=== PATIENT | male | born 1995 | race Caucasian/White ===

== ENCOUNTER → 2021-12-06 | Outpatient (CLI) | payer OTHER, SELFPAY ==
[2021-12-06 12:13] LABS: Absolute Lymphocyte Count 1.39 X10^3/uL (0.83-4.51); Absolute Neutrophil Count 2.2 X10^3/uL (2.0-7.7); Basophil# 0.03 X10^3/uL; Basophil% 0.8 % (0-1); Eosinophil# 0.07 X10^3/uL; Eosinophils% 1.8 % (0-5); Hematocrit 44.6 % (40-54); Hemoglobin 16.3 g/dL (13.0-16.5); Lymphocyte # 1.39 X10^3/ul (0.83-4.51); Lymphocyte % 35.2 % (19-41); Mean Corp Hgb Conc 36.5 g/dL (32-36); Mean Corpuscular Hgb 31.2 pg (27.0-32.0); Mean Corpuscular Volume 85.4 fL (80-94); Mean Platelet Vol. 10.6 fl (6.2-12.0); Monocyte# 0.31 X10^3/uL; Monocyte% 7.8 % (0-10); NRBC Flagged by Analyzer 0 % (0-5); Neutrophil # 2.15 X10^3/uL (2.7-7.7); Neutrophil % 54.4 % (47-70); Platelet Count 230 K/mm3 (150-450); RBC Distribution Width CV 11.7 % (11.6-14.6); Red Blood Count 5.22 M/mm3 (4.6-6.2)
[2021-12-06 12:53] LABS: ALB/GLOB Ratio 1.4 RATIO (0.9-2.4); AST(SGOT) 23 U/L (15-37); Alanine Aminotransfer ALT/SGPT 59 U/L (16-61); Albumin, Serum 4.4 g/dL (3.2-5.0); Alkaline Phosphatase 62 U/L (45-117); Anion Gap 7 (5-15); BUN 11 mg/dL (7-18); BUN/Creat Ratio 11.2 RATIO (10-20); Chloride 102 mmol/L (98-107); Cholesterol 130 mg/dL (200); Creatinine, Serum 0.98 mg/dL (0.70-1.30); EST Glomerular Filtration Rate 98 mL/min (>60); Est Glom Filt Rate - Afr Amer 118 mL/min (>60); Globulin 3.2 g/dL (2.2-4.2); Glucose 86 mg/dL (74-106); High Density Lipoprotein 49 mg/dL; Potassium 4.7 mmol/L (3.5-5.1); Protein, Total 7.6 g/dL (6.4-8.2); Sodium Level 137 mmol/L (136-145); Thyroid Stim Hormone (TSH) 0.92 uIU/mL (0.358-3.74); Triglycerides 117 mg/dL; Very Low Density Lipoprotein 23 mg/dL (5-40)
== END | disposition home or self-care (01) ==
LOC: MFPLAB 10:37
PROVIDERS: Visit Provider Family Medicine
DX: R55 Syncope and collapse (principal)
CPT/HCPCS: 36415; 80053; 80061; 84443; 85025

== ENCOUNTER → 2021-12-10 | Outpatient (CLI) | payer OTHER, SELFPAY ==
--- NOTE | 2021-12-10 09:58 | ECHOD_ITS ---
Reason For Study: Syncope Procedure This was a 2D Doppler, Color Flow transthoracic echocardiogram. Exam performed in department. Left Ventricle Normal LV size. Left ventricular systolic function is normal. The estimated ejection fraction is 65 %. Normal diastology for age. No regional wall motion abnormalities noted. Right Ventricle Normal RV size. Normal systolic function. Atria Normal left atrium. Normal right atrium. Mitral Valve Normal mitral valve. Tricuspid Valve Normal tricuspid valve. Aortic Valve Normal aortic valve. Trisinus/trileaflet aortic valve. Pulmonic Valve Normal pulmonic valve. Great Vessels Normal aortic root. The pulmonary artery is normal size. Normal inferior vena cava. Pericardium/Pleural No pericardial effusion. MMode/2D Measurements & Calculations LVIDd: 4.0 cm IVSd: 1.1 cm Ao root diam: 2.5 cm LVIDs: 2.8 cm LVPWd: 1.0 cm LA dimension: 2.9 cm RVDd: 3.6 cm FS: 29.7 % LAV(MOD-bp): 29.1 ml LA A4 area: 11.0 cm2 RA A4 area: 13.1 cm2 LAV(MOD-bp) Indexed: 15.6 ml/m2 LAV(MOD-sp2): 38.4 ml LAV(MOD-sp4): 22.0 ml Time Measurements MV dec time: 0.17 sec Doppler Measurements & Calculations MV E max puma: 70.4 cm/sec Lat Peak E' Puma: 16.0 cm/sec Med Peak E' Puma: 11.6 cm/sec MV A max puma: 47.4 cm/sec E/E' lat: 4.4 E/E' med: 6.1 MV E/A: 1.5 MV V2 max: 63.8 cm/sec MV P1/2t max puma: 64.1 cm/sec Ao V2 max: 98.1 cm/sec MV max P.6 mmHg MV P1/2t: 50.8 msec Ao max P.8 mmHg MV V2 mean: 37.0 cm/sec MV dec slope: 369.1 cm/sec2 Ao V2 mean: 68.4 cm/sec MV mean P.64 mmHg MVA(P1/2t): 4.3 cm2 Ao mean P.1 mmHg MV V2 VTI: 15.7 cm Ao V2 VTI: 19.5 cm LV V1 max: 97.2 cm/sec PA V2 max: 114.1 cm/sec LV V1 max P.8 mmHg LV V1 mean P.0 mmHg LV V1 mean: 66.7 cm/sec LV V1 VTI: 18.4 cm ECHO/Echo Complete Interpretation Summary Normal LV size. Left ventricular systolic function is normal. The estimated ejection fraction is 65 %. Structurally normal valves. Ordering Physician: Marquita Condon Referring Physician: Marquita Condon Performed By: Rubens Dee RCS
== END | disposition home or self-care (01) ==
PROVIDERS: PCP Family Medicine; Referring Provider Family Medicine; Visit Provider Family Medicine
DX: R55 Syncope and collapse (principal)
CPT/HCPCS: 93306